=== PATIENT | female | born 1990 | race Caucasian/White ===

== ENCOUNTER 2018-01-02 23:45 | Emergency (ER) | payer SELFPAY ==
[~2018-01-02] VITALS: Ht 175.3 cm; Wt 61.2 kg
[2018-01-02 23:55] VITALS: BP 152/84
[2018-01-03] MEDS ORDERED: TETANUS-DIPTH-ACEL PERTUSSIS 0.5ML SYRG IM ONE (01:15)
== END 2018-01-03 01:28 | disposition home or self-care (01) ==
LOC: ER 23:51
DX: S61.012A Laceration without foreign body of left thumb without damage to nail, initial encounter (principal); W26.9XXA Contact with unspecified sharp object(s), initial encounter; Y93.89 Activity, other specified; Y99.8 Other external cause status; Y92.89 Other specified places as the place of occurrence of the external cause
CPT/HCPCS: 12002; 12004